=== PATIENT | female | born 1945 | race African-American/Black ===

== ENCOUNTER 2019-06-01 03:04 | Emergency (ER) | payer MEDICARE, OTHER ==
[~2019-06-01] VITALS: Ht 170.2 cm; Wt 82.0 kg
[~2019-06-01 03:04] MED LIST: ALPR-392 PO; AMIODARONE PO; ASPI-1393 PO; CHOL100044 PO; CLOP75TA4 PO; DEXL60CA3 PO; DOCU-150 PO; HYDR100T26 PO; LEVO75TA7 PO; NIFE60TA35 PO; WARF5TAB76 PO
[2019-06-01] MEDS ORDERED: LORAZEPAM 1MG TABLET PO ONE (05:00)
[2019-06-01 06:09] VITALS: BP 120/78
== END 2019-06-01 06:10 | disposition home or self-care (01) ==
LOC: ER 03:04
DX: F41.9 Anxiety disorder, unspecified (principal); I11.9 Hypertensive heart disease without heart failure; I48.91 Unspecified atrial fibrillation; E03.9 Hypothyroidism, unspecified; Z79.899 Other long term (current) drug therapy
CPT/HCPCS: 99284

== ENCOUNTER 2019-06-28 18:32 | Inpatient (IN) | payer OTHER ==
[~2019-06-28] VITALS: Ht 162.6 cm; Wt 90.7 kg
[2019-06-28 19:50] VITALS: BP 156/93
[2019-06-28 20:00] VITALS: BP 156/93
[2019-06-28] MEDS ORDERED: DIPHENHYDRAMINE 25MG CAPSULE PO PRN (22:00)
[2019-06-28 22:18] VITALS: BP 160/82
[2019-06-28] MEDS: HYDRALAZINE HCL 100MG TABLET PO SCH (22:18)
[2019-06-29] MEDS ORDERED: MAGNESIUM/ALUMINUM HYDROXIDE/SIMETHICONE 30ML UDC PO PRN (03:15)
[2019-06-29 06:03] VITALS: BP 153/82
[2019-06-29] MEDS: HYDRALAZINE HCL 100MG TABLET PO SCH ×3 (06:03→21:32)
[2019-06-29] MEDS: LEVOTHYROXINE SODIUM 88MCG TABLET PO SCH (06:03)
[2019-06-29 07:11] LABS: BASOPHILS % 0.5 % (0.0-2.0); EOSINOPHILS % 3.2 % (0.0-5.0); HEMATOCRIT. 35.4 % (36.0-48.0); HEMOGLOBIN. 12.4 g/dL (12.0-16.0); MEAN CORPUSCULAR VOLUME 97.2 fL (81.0-99.0); MEAN PLATELET VOLUME 8.4 fl (7.4-10.4); MONOCYTES % 12.9 % (2.0-8.0); NEUTROPHILS % 45.4 % (40.0-76.0); PLATELET 203 x1000/uL (130-400); RED BLOOD CELL COUNT 3.64 mill/uL (4.2-5.4); RED CELL DISTRIBUTION WIDTH 15.2 % (11.6-14.6)
[2019-06-29 07:25] LABS: CHLORIDE 107 mEq/L (98-107)
[2019-06-29] MEDS ORDERED: PNEUMOCOCCAL 23-VAL P-SAC VAC 0.5 ML IM ONE (08:00)
[2019-06-29] MEDS: ALPRAZOLAM 0.25 MG TABLET PO PRN (08:08)
[2019-06-29] MEDS: CLOPIDOGREL 75MG TABLET PO SCH (08:09)
[2019-06-29] MEDS: FAMOTIDINE 20MG TABLET PO SCH (08:09)
[2019-06-29] MEDS: ASPIRIN 81MG TABLET PO SCH (08:09)
[2019-06-29] MEDS: NIFEDIPINE XL 90MG TAB PO SCH (08:09)
[2019-06-29] MEDS: MELOXICAM 7.5MG TABLET PO SCH (08:10)
[2019-06-29] MEDS: DOCUSATE SODIUM 100MG CAPSULE PO SCH ×2 (08:10→08:11)
[2019-06-29] MEDS: LOSARTAN POTASSIUM 50 MG TABLET PO SCH (08:10)
[2019-06-29] MEDS: AMIODARONE HCL 200 MG TABLET PO SCH (08:10)
[2019-06-29] MEDS ORDERED: INFLUENZA VIRUS VACCINE(AFLURIA) 0.5ML SYR IM ONE (10:00)
[2019-06-29] MEDS: HYDROCODONE/ACETAMINOPHEN 5/325MG TABLET PO PRN (11:52)
[2019-06-29] MEDS ORDERED: POTASSIUM CHLORIDE 20MEQ TABLET SR PO NR (14:00)
[2019-06-29] MEDS: ENOXAPARIN 40MG/0.4ML SYR SUBCUT SCH (16:05)
[2019-06-29] MEDS: BISACODYL 5MG TABLET PO PRN (16:05)
[2019-06-29] MEDS: MONTELUKAST SODIUM 10MG TABLET PO SCH (16:52)
[2019-06-29 18:52] LABS: T4 FREE 1.29 ng/dL (0.76-1.46)
[2019-06-29 20:00] VITALS: BP 117/59
[2019-06-29] MEDS: IPRATROPIUM BROMIDE (0.02%) 0.5MG/2.5ML NEB HHN SCH (20:01)
[2019-06-29] MEDS: TRAMADOL 50MG TABLET PO PRN (21:31)
[2019-06-30] MEDS: IPRATROPIUM BROMIDE (0.02%) 0.5MG/2.5ML NEB HHN SCH ×3 (00:48→13:40)
[2019-06-30] MEDS: ALPRAZOLAM 0.25 MG TABLET PO PRN ×2 (02:08→22:02)
[2019-06-30] MEDS: BISACODYL 5MG TABLET PO PRN (05:43)
[2019-06-30] MEDS: LEVOTHYROXINE SODIUM 88MCG TABLET PO SCH (05:43)
[2019-06-30] MEDS: HYDRALAZINE HCL 100MG TABLET PO SCH ×3 (05:44→23:01)
[2019-06-30] MEDS: HYDROCODONE/ACETAMINOPHEN 5/325MG TABLET PO PRN (06:34)
[2019-06-30 08:16] VITALS: BP 122/51
[2019-06-30] MEDS: LOSARTAN POTASSIUM 50 MG TABLET PO SCH (08:49)
[2019-06-30] MEDS: DOCUSATE SODIUM 100MG CAPSULE PO SCH ×2 (08:49→16:49)
[2019-06-30] MEDS: NIFEDIPINE XL 90MG TAB PO SCH ×2 (08:49→21:05)
[2019-06-30] MEDS: MELOXICAM 7.5MG TABLET PO SCH (08:50)
[2019-06-30] MEDS: CLOPIDOGREL 75MG TABLET PO SCH (08:50)
[2019-06-30] MEDS: ASPIRIN 81MG TABLET PO SCH (08:51)
[2019-06-30] MEDS: FAMOTIDINE 20MG TABLET PO SCH (08:51)
[2019-06-30] MEDS: AMIODARONE HCL 200 MG TABLET PO SCH (08:51)
[2019-06-30 10:59] LABS: BASOPHILS % 0.7 % (0.0-2.0); CHLORIDE 110 mEq/L (98-107); EOSINOPHILS % 1.6 % (0.0-5.0); HEMATOCRIT. 35.2 % (36.0-48.0); HEMOGLOBIN. 12.3 g/dL (12.0-16.0); LYMPHOCYTES % 28.8 % (20.0-50.0); MEAN CORPUSCULAR VOLUME 97.2 fL (81.0-99.0); MEAN PLATELET VOLUME 8.3 fl (7.4-10.4); MONOCYTES % 11.2 % (2.0-8.0); NEUTROPHILS % 57.7 % (40.0-76.0); PLATELET 218 x1000/uL (130-400); RED BLOOD CELL COUNT 3.63 mill/uL (4.2-5.4); RED CELL DISTRIBUTION WIDTH 14.9 % (11.6-14.6)
[2019-06-30 11:02] LABS: PARTIAL THROMBOPLASTIN TIME 27.2 sec (23.4-31.0); PROTHROMBIN TIME 10.4 sec (9.6-11.0)
[2019-06-30] MEDS ORDERED: NA PHOS,M-B/NA PHOS,DI-BA ENEMA 118ML PR SCH (12:00)
[2019-06-30] MEDS: MONTELUKAST SODIUM 10MG TABLET PO SCH (16:49)
[2019-06-30] MEDS: ENOXAPARIN 40MG/0.4ML SYR SUBCUT SCH (16:50)
[2019-06-30 20:00] VITALS: BP 124/49
[2019-06-30] MEDS: IPRATROPIUM/ALBUTEROL 0.5-3(2.5)MG/3ML NEB HHN PRN (21:53)
[2019-07-01] MEDS: IPRATROPIUM BROMIDE (0.02%) 0.5MG/2.5ML NEB HHN SCH ×4 (02:38→21:23)
[2019-07-01] MEDS: HYDRALAZINE HCL 100MG TABLET PO SCH ×3 (05:54→21:03)
[2019-07-01] MEDS: LEVOTHYROXINE SODIUM 88MCG TABLET PO SCH (05:55)
[2019-07-01] MEDS: TRAMADOL 50MG TABLET PO PRN (05:55)
[2019-07-01 08:21] VITALS: BP 107/52
[2019-07-01] MEDS: NIFEDIPINE XL 90MG TAB PO SCH ×2 (09:00→20:38)
[2019-07-01] MEDS: LOSARTAN POTASSIUM 50 MG TABLET PO SCH (09:00)
[2019-07-01] MEDS: CLOPIDOGREL 75MG TABLET PO SCH (09:08)
[2019-07-01] MEDS: DONEPEZIL HCL 10MG TABLET PO SCH (09:09)
[2019-07-01] MEDS: DOCUSATE SODIUM 100MG CAPSULE PO SCH ×2 (09:09→17:05)
[2019-07-01] MEDS: ASPIRIN 81MG TABLET PO SCH (09:09)
[2019-07-01] MEDS: AMIODARONE HCL 200 MG TABLET PO SCH (09:09)
[2019-07-01] MEDS: FAMOTIDINE 20MG TABLET PO SCH (09:09)
[2019-07-01] MEDS: MELOXICAM 7.5MG TABLET PO SCH (09:09)
[2019-07-01] MEDS: IPRATROPIUM/ALBUTEROL 0.5-3(2.5)MG/3ML NEB HHN PRN (10:40)
[2019-07-01] MEDS: ALPRAZOLAM 0.25 MG TABLET PO PRN (11:41)
[2019-07-01] MEDS: MONTELUKAST SODIUM 10MG TABLET PO SCH (16:38)
[2019-07-01] MEDS: ENOXAPARIN 40MG/0.4ML SYR SUBCUT SCH (16:38)
[2019-07-01 20:00] VITALS: BP 99/63
[2019-07-02] MEDS: IPRATROPIUM BROMIDE (0.02%) 0.5MG/2.5ML NEB HHN SCH ×3 (05:07→19:39)
[2019-07-02] MEDS: HYDRALAZINE HCL 100MG TABLET PO SCH ×3 (05:29→22:30)
[2019-07-02] MEDS: LEVOTHYROXINE SODIUM 100MCG TABLET PO SCH (06:12)
[2019-07-02] MEDS: TRAMADOL 50MG TABLET PO PRN (06:17)
[2019-07-02 08:00] VITALS: BP 144/71
[2019-07-02] MEDS: CLOPIDOGREL 75MG TABLET PO SCH (08:44)
[2019-07-02] MEDS: MELOXICAM 7.5MG TABLET PO SCH (08:44)
[2019-07-02] MEDS: AMIODARONE HCL 200 MG TABLET PO SCH (08:44)
[2019-07-02] MEDS: NIFEDIPINE XL 90MG TAB PO SCH ×2 (08:44→20:43)
[2019-07-02] MEDS: FAMOTIDINE 20MG TABLET PO SCH (08:44)
[2019-07-02] MEDS: DONEPEZIL HCL 10MG TABLET PO SCH (08:44)
[2019-07-02] MEDS: DOCUSATE SODIUM 100MG CAPSULE PO SCH ×2 (08:44→17:50)
[2019-07-02] MEDS: LOSARTAN POTASSIUM 50 MG TABLET PO SCH (08:44)
[2019-07-02] MEDS: ASPIRIN 81MG TABLET PO SCH (08:45)
[2019-07-02] MEDS: MONTELUKAST SODIUM 10MG TABLET PO SCH (17:39)
[2019-07-02] MEDS: ENOXAPARIN 40MG/0.4ML SYR SUBCUT SCH (17:40)
[2019-07-02 20:00] VITALS: BP 136/75
[2019-07-03] MEDS: ALPRAZOLAM 0.25 MG TABLET PO PRN (00:51)
[2019-07-03] MEDS: IPRATROPIUM BROMIDE (0.02%) 0.5MG/2.5ML NEB HHN SCH ×2 (01:24→07:31)
[2019-07-03] MEDS: HYDRALAZINE HCL 100MG TABLET PO SCH (05:56)
[2019-07-03] MEDS: LEVOTHYROXINE SODIUM 100MCG TABLET PO SCH (07:16)
[2019-07-03 08:00] VITALS: BP 129/73
[2019-07-03] MEDS: LOSARTAN POTASSIUM 50 MG TABLET PO SCH (08:19)
[2019-07-03] MEDS: CLOPIDOGREL 75MG TABLET PO SCH (08:19)
[2019-07-03] MEDS: MELOXICAM 7.5MG TABLET PO SCH (08:19)
[2019-07-03] MEDS: FAMOTIDINE 20MG TABLET PO SCH (08:19)
[2019-07-03] MEDS: NIFEDIPINE XL 90MG TAB PO SCH (08:19)
[2019-07-03] MEDS: DONEPEZIL HCL 10MG TABLET PO SCH (08:20)
[2019-07-03] MEDS: ASPIRIN 81MG TABLET PO SCH (08:20)
[2019-07-03] MEDS: DOCUSATE SODIUM 100MG CAPSULE PO SCH (08:20)
[2019-07-03] MEDS: AMIODARONE HCL 200 MG TABLET PO SCH (08:20)
[2019-07-03] MEDS: TRAMADOL 50MG TABLET PO PRN (08:44)
[2019-07-03 09:05] VITALS: BP 129/73
== END 2019-07-03 10:00 | disposition home health service (06) | DRG 552 ==
LOC: UNDOADMIN 21:52
PROVIDERS: ADMIT Psychiatry & Neurology Neurology; ATTEND Internal Medicine Critical Care Medicine
DX: S32.039A Unspecified fracture of third lumbar vertebra, initial encounter for closed fracture (principal); I42.9 Cardiomyopathy, unspecified; M54.16 Radiculopathy, lumbar region; E87.6 Hypokalemia; I48.0 Paroxysmal atrial fibrillation; Z86.73 Personal history of transient ischemic attack (TIA), and cerebral infarction without residual deficits; I11.0 Hypertensive heart disease with heart failure; I50.9 Heart failure, unspecified; I25.10 Atherosclerotic heart disease of native coronary artery without angina pectoris; E66.01 Morbid (severe) obesity due to excess calories; K43.9 Ventral hernia without obstruction or gangrene; E78.5 Hyperlipidemia, unspecified; M32.9 Systemic lupus erythematosus, unspecified; E03.9 Hypothyroidism, unspecified; F03.90 Unspecified dementia, unspecified severity, without behavioral disturbance, psychotic disturbance, mood disturbance, and anxiety; F41.1 Generalized anxiety disorder; J45.909 Unspecified asthma, uncomplicated; K21.9 Gastro-esophageal reflux disease without esophagitis; M43.16 Spondylolisthesis, lumbar region; K57.90 Diverticulosis of intestine, part unspecified, without perforation or abscess without bleeding; I25.2 Old myocardial infarction; Z79.01 Long term (current) use of anticoagulants; Z95.5 Presence of coronary angioplasty implant and graft; Z68.34 Body mass index [BMI] 34.0-34.9, adult; Z79.02 Long term (current) use of antithrombotics/antiplatelets; Z79.82 Long term (current) use of aspirin; Z82.49 Family history of ischemic heart disease and other diseases of the circulatory system; Z90.710 Acquired absence of both cervix and uterus
CPT/HCPCS: 36415; 80048; 83735; 84439; 84443; 84481; 92523; 92610; 93005; 93970; 97110; 97116; 97162; 97166; 97530; 97535; J1650; J7620

== ENCOUNTER 2020-09-02 21:07 | Inpatient (IN) | payer OTHER ==
[~2020-09-02] VITALS: Ht 162.6 cm; Wt 80.7 kg
[~2020-09-02 21:07] MED LIST changes: -ASPI-1393 PO; +ASPI-1497 PO
[2020-09-02] MEDS ORDERED: MORPHINE SULFATE 4 MG/ML CPJ (NOT FOR IM USE) IV STA (22:39)
[2020-09-02] MEDS ORDERED: ONDANSETRON HCL 4MG/2ML INJ IV STA (22:39)
[2020-09-02] MEDS ORDERED: SODIUM CHLORIDE 0.9% 1,000 ML IV ONE (22:45)
[2020-09-02 23:18] LABS: CHLORIDE 103 mEq/L (98-107)
[2020-09-02 23:23] LABS: PROTHROMBIN TIME 10.8 sec (9.6-11.0)
[2020-09-02 23:25] LABS: BASOPHILS % 0.4 % (0.0-2.0); EOSINOPHILS % 0.1 % (0.0-5.0); HEMATOCRIT. 39.9 % (36.0-48.0); HEMOGLOBIN. 13.7 g/dL (12.0-16.0); LYMPHOCYTES % 11.3 % (20.0-50.0); MEAN CORPUSCULAR HEMOGLOBIN 33.2 pg (28.0-32.0); MEAN CORPUSCULAR VOLUME 96.8 fL (81.0-99.0); MEAN PLATELET VOLUME 8.7 fl (7.4-10.4); MONOCYTES % 4.4 % (2.0-8.0); NEUTROPHILS % 83.8 % (40.0-76.0); PLATELET 185 x1000/uL (130-400); RED BLOOD CELL COUNT 4.12 mill/uL (4.2-5.4); RED CELL DISTRIBUTION WIDTH 15.2 % (11.6-14.6)
[2020-09-02] MEDS ORDERED: SODIUM CHLORIDE 0.9% 1000ML BAG (SEPSIS BOLUS) IV ONE (23:45)
[2020-09-03] MEDS ORDERED: ONDANSETRON HCL 4MG/2ML INJ IV PRN (10:00)
[2020-09-03] MEDS ORDERED: ACETAMINOPHEN 325MG TABLET PO PRN (10:00)
[2020-09-03] MEDS ORDERED: NA PHOS,M-B/NA PHOS,DI-BA ENEMA 118ML PR PRN (10:00)
[2020-09-03] MEDS ORDERED: CLONIDINE 0.1MG TABLET PO PRN (10:00)
[2020-09-03] MEDS ORDERED: DIPHENHYDRAMINE 50MG/ML VIAL IV PRN (10:00)
[2020-09-03] MEDS ORDERED: AMLODIPINE 10MG TABLET PO SCH (10:49)
[2020-09-03] MEDS ORDERED: POTASSIUM CHLORIDE INJ 40 MEQ in DEXT 5% WATER 500 ML IV NR (11:15)
[2020-09-03 11:30] VITALS: BP 134/66
[2020-09-03 12:00] VITALS: BP 134/66
[2020-09-03] MEDS ORDERED: METOCLOPRAMIDE HCL 10MG/2ML VIAL IV SCH (12:00)
[2020-09-03] MEDS: DEXT 5%/0.45% NACL 1000ML 1,000 ML IV SCH (12:29)
[2020-09-03 13:07] LABS: HEMATOCRIT. 43.1 % (36.0-48.0); HEMOGLOBIN. 14.7 g/dL (12.0-16.0); MEAN CORPUSCULAR HEMOGLOBIN 33.4 pg (28.0-32.0); MEAN CORPUSCULAR VOLUME 97.8 fL (81.0-99.0); MEAN PLATELET VOLUME 8.6 fl (7.4-10.4); PLATELET 184 x1000/uL (130-400); RED CELL DISTRIBUTION WIDTH 15.1 % (11.6-14.6)
[2020-09-03 13:12] LABS: CHLORIDE 102 mEq/L (98-107)
[2020-09-03] MEDS ORDERED: POTASSIUM CHLORIDE 20MEQ TABLET SR PO NR (14:00)
[2020-09-03 14:11] LABS: PLATELET ESTIMATE NORMAL
[2020-09-03] MEDS ORDERED: ENALAPRIL 2.5MG/2ML VIAL 2ML IV PRN (14:15)
[2020-09-03 16:00] VITALS: BP 174/82
[2020-09-03 18:15] LABS: CREATINE KINASE MB FRACTION 4.6 ng/mL (0.5-3.6)
[2020-09-03 20:00] VITALS: BP 165/66
[2020-09-03] MEDS: HYDRALAZINE 10 MG in SODIUM CHLORIDE 0.9% 49.5 ML IV SCH (22:35)
[2020-09-03 23:31] LABS: CREATINE KINASE MB FRACTION 4.1 ng/mL (0.5-3.6)
[2020-09-04] VITALS: BP 165/72
[2020-09-04] MEDS ORDERED: HYDRALAZINE 20MG/ML VIAL IV SCH
[2020-09-04 04:00] VITALS: BP 159/65
[2020-09-04] MEDS: DEXT 5%/0.45% NACL 1000ML 1,000 ML IV SCH (04:12)
[2020-09-04] MEDS: HYDRALAZINE 10 MG in SODIUM CHLORIDE 0.9% 49.5 ML IV SCH ×4 (04:20→21:50)
[2020-09-04 06:20] LABS: HEMATOCRIT. 35.2 % (36.0-48.0); HEMOGLOBIN. 12.5 g/dL (12.0-16.0); MEAN CORPUSCULAR HEMOGLOBIN 33.8 pg (28.0-32.0); MEAN CORPUSCULAR VOLUME 94.9 fL (81.0-99.0); MEAN PLATELET VOLUME 8.8 fl (7.4-10.4); PLATELET 182 x1000/uL (130-400); RED BLOOD CELL COUNT 3.71 mill/uL (4.2-5.4); RED CELL DISTRIBUTION WIDTH 15.1 % (11.6-14.6)
[2020-09-04 06:31] LABS: CHLORIDE 104 mEq/L (98-107)
[2020-09-04 06:42] LABS: LDL CHOLESTEROL 103 mg/dL (5-100)
[2020-09-04 06:44] LABS: HDL CHOLESTEROL 96 mg/dL (40-59)
[2020-09-04 08:00] VITALS: BP 154/54
[2020-09-04] MEDS: FAMOTIDINE 20MG/2ML VIAL IV SCH (09:14)
[2020-09-04] MEDS ORDERED: DIATR MEGLU/DIATRIZOATE SOLN 30ML PO NR (09:15)
[2020-09-04 12:00] VITALS: BP 156/50
[2020-09-04 15:27] LABS: PLATELET ESTIMATE NORMAL
[2020-09-04 16:00] VITALS: BP 152/56
[2020-09-04 20:00] VITALS: BP 121/51
[2020-09-05] VITALS: BP 113/43
[2020-09-05] MEDS: MAGNESIUM/ALUMINUM HYDROXIDE/SIMETHICONE 30ML UDC PO PRN (00:22)
[2020-09-05 04:00] VITALS: BP 121/96
[2020-09-05] MEDS: HYDRALAZINE 10 MG in SODIUM CHLORIDE 0.9% 49.5 ML IV SCH ×4 (05:03→22:34)
[2020-09-05 08:00] VITALS: BP 128/99
[2020-09-05] MEDS: FAMOTIDINE 20MG/2ML VIAL IV SCH (09:00)
[2020-09-05] MEDS ORDERED: SIMETHICONE 80MG TABLET CHEW PO PRN (11:15)
[2020-09-05 12:00] VITALS: BP 95/47
[2020-09-05] MEDS: DEXT 5%/0.45% NACL 1000ML 1,000 ML IV SCH (12:51)
[2020-09-05 16:00] VITALS: BP 94/47
[2020-09-05 20:00] VITALS: BP 118/46
[2020-09-06] VITALS: BP 150/57
[2020-09-06 04:00] VITALS: BP 132/44
[2020-09-06] MEDS: MAGNESIUM/ALUMINUM HYDROXIDE/SIMETHICONE 30ML UDC PO PRN (05:27)
[2020-09-06] MEDS: HYDRALAZINE 10 MG in SODIUM CHLORIDE 0.9% 49.5 ML IV SCH ×4 (05:45→22:00)
[2020-09-06] MEDS: DEXT 5%/0.45% NACL 1000ML 1,000 ML IV SCH (05:46)
[2020-09-06 08:00] VITALS: BP 181/57
[2020-09-06] MEDS: FAMOTIDINE 20MG/2ML VIAL IV SCH (08:53)
[2020-09-06 12:00] VITALS: BP 149/45
[2020-09-06 16:00] VITALS: BP 117/48
[2020-09-06 20:00] VITALS: BP 108/48
[2020-09-06] MEDS ORDERED: AMIODARONE 200 MG PO SCH (23:15)
[2020-09-07] VITALS: BP 191/62
[2020-09-07] MEDS ORDERED: WARFARIN SODIUM 5MG TABLET PO SCH
[2020-09-07] MEDS: HYDRALAZINE HCL 100MG TABLET PO SCH ×3 (00:13→12:43)
[2020-09-07] MEDS: LEVOTHYROXINE SODIUM 75MCG TABLET PO SCH ×2 (00:14→07:32)
[2020-09-07] MEDS: DOCUSATE SODIUM 100MG CAPSULE PO SCH ×2 (00:14→09:17)
[2020-09-07] MEDS: ASPIRIN 81MG EC TABLET PO SCH ×2 (00:15→09:17)
[2020-09-07] MEDS: CLOPIDOGREL 75MG TABLET PO SCH ×2 (00:15→09:18)
[2020-09-07] MEDS: CHOLECALCIFEROL (D3) 1000 UNIT TABLET PO SCH ×2 (00:16→09:18)
[2020-09-07] MEDS: NIFEDIPINE XL 60MG TAB PO SCH ×2 (00:16→09:17)
[2020-09-07] MEDS: DEXT 5%/0.45% NACL 1000ML 1,000 ML IV SCH (00:17)
[2020-09-07] MEDS: AMIODARONE HCL 200 MG TABLET PO SCH ×2 (01:47→09:18)
[2020-09-07 04:02] VITALS: BP 159/59
[2020-09-07] MEDS: HYDRALAZINE 10 MG in SODIUM CHLORIDE 0.9% 49.5 ML IV SCH ×2 (05:04→09:18)
[2020-09-07 08:00] VITALS: BP 118/58
[2020-09-07] MEDS: FAMOTIDINE 20MG/2ML VIAL IV SCH (09:17)
[2020-09-07 09:20] LABS: BASOPHILS % 0.3 % (0.0-2.0); EOSINOPHILS % 1.7 % (0.0-5.0); HEMATOCRIT. 31.5 % (36.0-48.0); HEMOGLOBIN. 10.9 g/dL (12.0-16.0); LYMPHOCYTES % 25.5 % (20.0-50.0); MEAN CORPUSCULAR HEMOGLOBIN 33.3 pg (28.0-32.0); MEAN CORPUSCULAR VOLUME 96.2 fL (81.0-99.0); MEAN PLATELET VOLUME 8.9 fl (7.4-10.4); MONOCYTES % 14.5 % (2.0-8.0); PLATELET 169 x1000/uL (130-400); RED BLOOD CELL COUNT 3.27 mill/uL (4.2-5.4); RED CELL DISTRIBUTION WIDTH 14.6 % (11.6-14.6)
[2020-09-07 09:28] LABS: PROTHROMBIN TIME 10.8 sec (9.6-11.0)
[2020-09-07 09:29] LABS: CHLORIDE 109 mEq/L (98-107)
[2020-09-07 11:17] VITALS: BP 121/67
== END 2020-09-07 13:25 | disposition home or self-care (01) | DRG 393 ==
LOC: ER 21:07 → 6EST 09-03 05:43 → ENRESERV 09-03 09:25
PROVIDERS: ADMIT Family Medicine; ATTEND Family Medicine
DX: K42.0 Umbilical hernia with obstruction, without gangrene (principal); I50.31 Acute diastolic (congestive) heart failure; I48.20 Chronic atrial fibrillation, unspecified; I11.0 Hypertensive heart disease with heart failure; I25.10 Atherosclerotic heart disease of native coronary artery without angina pectoris; K57.90 Diverticulosis of intestine, part unspecified, without perforation or abscess without bleeding; E55.9 Vitamin D deficiency, unspecified; F41.9 Anxiety disorder, unspecified; E03.9 Hypothyroidism, unspecified; Z20.828 Contact with and (suspected) exposure to other viral communicable diseases; E78.5 Hyperlipidemia, unspecified; Z90.49 Acquired absence of other specified parts of digestive tract; Z90.710 Acquired absence of both cervix and uterus; Z79.899 Other long term (current) drug therapy; Z95.5 Presence of coronary angioplasty implant and graft; Z79.82 Long term (current) use of aspirin; E87.6 Hypokalemia; K59.00 Constipation, unspecified
CPT/HCPCS: 80053; 83605; 83690; 85025; 85610; 99285; J7030; 36415; 71045; 74018; 74176; 74177; 80048; 80061; 82550; 82553; 84484; 87426; 93005; J0360; J2270; J2405; J3480; J3490; J7060; Q9963

== ENCOUNTER 2020-10-07 20:20 | Inpatient (IN) | payer MEDICARE, OTHER ==
[~2020-10-07] VITALS: Ht 162.6 cm; Wt 76.1 kg
[2020-10-07 20:20] VITALS: BP 115/61
[~2020-10-07 20:20] MED LIST changes: +CLOP-31 PO; -CLOP75TA4 PO
[2020-10-07 20:30] VITALS: BP 115/61
[2020-10-08] MEDS ORDERED: HEPARIN 100 UNITS/1 ML VIAL IVF PRN (01:30)
[2020-10-08] MEDS ORDERED: MAGNESIUM HYDROXIDE 400MG/5ML 30ML UDC PO PRN (01:30)
[2020-10-08] MEDS ORDERED: ALPRAZOLAM 0.25 MG TABLET PO PRN (01:30)
[2020-10-08] MEDS ORDERED: SODIUM CHLORIDE 0.9% INJ 10ML FLUSH IVF PRN (01:30)
[2020-10-08] MEDS: AMIODARONE HCL 200 MG TABLET PO SCH ×3 (02:59→21:40)
[2020-10-08] MEDS: LOSARTAN POTASSIUM 50 MG TABLET PO SCH ×2 (02:59→10:59)
[2020-10-08] MEDS: DOCUSATE SODIUM 100MG CAPSULE PO SCH ×3 (03:00→17:55)
[2020-10-08] MEDS: PANTOPRAZOLE SODIUM 40 MG/VIAL IV SCH ×2 (03:00→10:58)
[2020-10-08] MEDS: MULTIVITAMINS,THER W-MINERALS TABLET PO SCH ×2 (03:00→10:58)
[2020-10-08] MEDS ORDERED: ENOXAPARIN 80MG/0.8ML SYR SUBCUT SCH (03:00)
[2020-10-08] MEDS: FERROUS SULFATE 300MG/5ML UDC PO SCH ×3 (03:11→17:55)
[2020-10-08] MEDS: LEVOTHYROXINE SODIUM 88MCG TABLET PO SCH (07:08)
[2020-10-08] MEDS: HEPARIN 100 UNITS/1 ML VIAL IVF SCH ×4 (07:08→21:41)
[2020-10-08 07:53] LABS: BASOPHILS % 0.5 % (0.0-2.0); CHLORIDE 108 mEq/L (98-107); EOSINOPHILS % 0.2 % (0.0-5.0); HEMATOCRIT. 22.7 % (36.0-48.0); HEMOGLOBIN. 7.6 g/dL (12.0-16.0); LYMPHOCYTES % 23.7 % (20.0-50.0); MEAN CORPUSCULAR HEMOGLOBIN 30.8 pg (28.0-32.0); MEAN CORPUSCULAR VOLUME 92.8 fL (81.0-99.0); MEAN PLATELET VOLUME 7.8 fl (7.4-10.4); MONOCYTES % 10.6 % (2.0-8.0); PLATELET 333 x1000/uL (130-400); RED BLOOD CELL COUNT 2.45 mill/uL (4.2-5.4); RED CELL DISTRIBUTION WIDTH 16.8 % (11.6-14.6)
[2020-10-08 08:00] VITALS: BP 119/68
[2020-10-08] MEDS ORDERED: POTASSIUM CHLORIDE 20MEQ TABLET SR PO SCH (09:30)
[2020-10-08 14:28] LABS: CLARITY URINE CLEAR (CLEAR); COLOR URINE DARK YELLOW (YELLOW); KETONES URINE NEGATIVE (NEGATIVE); LEUKOCYTE ESTERASE URINE TRACE (NEGATIVE); NITRITE URINE NEGATIVE (NEGATIVE); OCCULT BLOOD URINE NEGATIVE (NEGATIVE); PROTEIN URINE 1+ (NEGATIVE)
[2020-10-08 15:28] LABS: INR 1.2; PROTHROMBIN TIME 12.6 sec (9.6-11.0)
[2020-10-08 17:30] VITALS: BP 119/56
[2020-10-08] MEDS: ENOXAPARIN 80MG/0.8ML SYR SUBCUT SCH (17:56)
[2020-10-08 19:09] LABS: BG BASE EXCESS 4.7 mmol/L (-2.0-2.0); BG CARBOXYHEMOGLOBIN 0.3 % (0.5-1.5); BG DEOXYHEMOGLOBIN 2.1 % (0.0-5.0); BG FRACTION INSPIRED OXYGEN 28; BG HCO3 ACT 27.7 mmol/L (22.0-26.0); BG METHEMOGLOBIN 0.3 % (0.0-1.5); BG OXYGEN SATURATION 97.9 % (92.0-98.5); BG OXYHEMOGLOBIN 97.3 % (94.0-97.0); BG PCO2 34.4 mmHg (35.0-45.0); BG PH 7.523 (7.350-7.450); BG PO2 115.5 mmHg (75.0-100.0); BG SAMPLE SITE RIGHT RADIAL; BG TOTAL HEMOGLOBIN 8.4 g/dL (12.0-18.0); BG VENT MODE NASAL CANNULA
[2020-10-08 20:00] VITALS: BP 120/41
[2020-10-09] MEDS: ENOXAPARIN 80MG/0.8ML SYR SUBCUT SCH (06:14)
[2020-10-09] MEDS: LEVOTHYROXINE SODIUM 88MCG TABLET PO SCH (06:14)
[2020-10-09 08:00] VITALS: BP 120/60
[2020-10-09 08:00] LABS: BASOPHILS % 0.3 % (0.0-2.0); EOSINOPHILS % 0.1 % (0.0-5.0); HEMATOCRIT. 22.8 % (36.0-48.0); HEMOGLOBIN. 7.7 g/dL (12.0-16.0); LYMPHOCYTES % 28.1 % (20.0-50.0); MEAN CORPUSCULAR HEMOGLOBIN 31.3 pg (28.0-32.0); MEAN CORPUSCULAR VOLUME 92.8 fL (81.0-99.0); MEAN PLATELET VOLUME 8.4 fl (7.4-10.4); MONOCYTES % 12.1 % (2.0-8.0); NEUTROPHILS % 59.4 % (40.0-76.0); PLATELET 329 x1000/uL (130-400); RED BLOOD CELL COUNT 2.46 mill/uL (4.2-5.4); RED CELL DISTRIBUTION WIDTH 16.9 % (11.6-14.6)
[2020-10-09 08:01] LABS: CHLORIDE 110 mEq/L (98-107)
[2020-10-09 08:06] LABS: TOTAL IRON BINDING CAPACITY 113 ug/dL (250-450)
[2020-10-09 08:20] LABS: FOLIC ACID (FOLATE) SERUM 8.1 ng/mL (>5.38)
[2020-10-09] MEDS ORDERED: NA PHOS,M-B/NA PHOS,DI-BA ENEMA 118ML PR SCH (08:30)
[2020-10-09] MEDS: HEPARIN 100 UNITS/1 ML VIAL IVF SCH ×2 (09:00→22:38)
[2020-10-09] MEDS: MULTIVITAMINS,THER W-MINERALS TABLET PO SCH (09:21)
[2020-10-09] MEDS: DOCUSATE SODIUM 100MG CAPSULE PO SCH ×2 (09:21→16:49)
[2020-10-09] MEDS: LOSARTAN POTASSIUM 50 MG TABLET PO SCH (09:22)
[2020-10-09] MEDS: PANTOPRAZOLE SODIUM 40 MG/VIAL IV SCH (09:22)
[2020-10-09] MEDS: AMIODARONE HCL 200 MG TABLET PO SCH ×2 (09:22→22:35)
[2020-10-09] MEDS: FERROUS SULFATE 300MG/5ML UDC PO SCH ×2 (09:22→16:52)
[2020-10-09] MEDS ORDERED: POTASSIUM CHLORIDE 20MEQ TABLET SR PO NR (16:00)
[2020-10-09 20:00] VITALS: BP 113/56
[2020-10-09] MEDS: LACTULOSE 20G/30ML UDC PO SCH (22:35)
[2020-10-10] MEDS: LACTULOSE 20G/30ML UDC PO SCH ×2 (06:00→14:09)
[2020-10-10 07:15] LABS: CHLORIDE 107 mEq/L (98-107)
[2020-10-10 07:20] LABS: BASOPHILS % 0.4 % (0.0-2.0); EOSINOPHILS % 0.2 % (0.0-5.0); HEMATOCRIT. 22.3 % (36.0-48.0); HEMOGLOBIN. 7.6 g/dL (12.0-16.0); LYMPHOCYTES % 35.5 % (20.0-50.0); MEAN CORPUSCULAR HEMOGLOBIN 31.6 pg (28.0-32.0); MEAN CORPUSCULAR VOLUME 92.9 fL (81.0-99.0); MONOCYTES % 14.2 % (2.0-8.0); NEUTROPHILS % 49.7 % (40.0-76.0); PLATELET 316 x1000/uL (130-400); RED CELL DISTRIBUTION WIDTH 17.2 % (11.6-14.6)
[2020-10-10 07:56] VITALS: BP 101/65
[2020-10-10] MEDS: LEVOTHYROXINE SODIUM 88MCG TABLET PO SCH (08:55)
[2020-10-10] MEDS: LOSARTAN POTASSIUM 50 MG TABLET PO SCH (09:00)
[2020-10-10] MEDS: DOCUSATE SODIUM 100MG CAPSULE PO SCH ×2 (09:01→16:24)
[2020-10-10] MEDS: PANTOPRAZOLE SODIUM 40 MG/VIAL IV SCH (09:01)
[2020-10-10] MEDS: FERROUS SULFATE 300MG/5ML UDC PO SCH ×2 (09:01→16:24)
[2020-10-10] MEDS: HEPARIN 100 UNITS/1 ML VIAL IVF SCH ×2 (09:01→20:54)
[2020-10-10] MEDS: AMIODARONE HCL 200 MG TABLET PO SCH ×2 (09:02→20:55)
[2020-10-10] MEDS: MULTIVITAMINS,THER W-MINERALS TABLET PO SCH (09:03)
[2020-10-10 09:29] VITALS: BP_SYST 140; BP_SYST 82; BP_DIAS 35; BP_DIAS 65
[2020-10-10] MEDS ORDERED: SODIUM CHLORIDE 0.9% 500 ML IV ONE (10:00)
[2020-10-10 10:03] VITALS: BP 144/66
[2020-10-10 10:04] VITALS: BP 111/74
[2020-10-10 10:12] VITALS: BP 124/64
[2020-10-10 13:15] LABS: T4 FREE 1.66 ng/dL (0.76-1.46)
[2020-10-10 20:00] VITALS: BP 117/62
[2020-10-11] MEDS: LEVOTHYROXINE SODIUM 88MCG TABLET PO SCH (06:08)
[2020-10-11 08:18] VITALS: BP 106/71
[2020-10-11] MEDS: LOSARTAN POTASSIUM 50 MG TABLET PO SCH (08:23)
[2020-10-11] MEDS: FERROUS SULFATE 300MG/5ML UDC PO SCH ×2 (08:33→15:11)
[2020-10-11] MEDS: PANTOPRAZOLE SODIUM 40 MG/VIAL IV SCH (08:33)
[2020-10-11] MEDS: HEPARIN 100 UNITS/1 ML VIAL IVF SCH ×2 (08:34→21:43)
[2020-10-11] MEDS: AMIODARONE HCL 200 MG TABLET PO SCH ×2 (08:34→21:43)
[2020-10-11] MEDS: DOCUSATE SODIUM 100MG CAPSULE PO SCH ×2 (08:34→15:11)
[2020-10-11] MEDS: MULTIVITAMINS,THER W-MINERALS TABLET PO SCH (08:34)
[2020-10-11] MEDS: DILTIAZEM HCL 30MG TABLET PO SCH ×2 (15:11→21:43)
[2020-10-11] MEDS ORDERED: DIGOXIN 250MCG TABLET PO SCH (18:00)
[2020-10-11 20:00] VITALS: BP 125/55
[2020-10-12] MEDS: LEVOTHYROXINE SODIUM 88MCG TABLET PO SCH (06:02)
[2020-10-12] MEDS: DILTIAZEM HCL 30MG TABLET PO SCH ×3 (06:06→21:11)
[2020-10-12 08:00] VITALS: BP 119/56
[2020-10-12] MEDS: PANTOPRAZOLE SODIUM 40 MG/VIAL IV SCH (08:37)
[2020-10-12] MEDS: FERROUS SULFATE 300MG/5ML UDC PO SCH ×2 (08:38→16:51)
[2020-10-12] MEDS: GUAIFENESIN-DM 200MG-20MG/10ML UDC PO PRN (08:40)
[2020-10-12] MEDS: HEPARIN 100 UNITS/1 ML VIAL IVF SCH ×2 (08:40→21:10)
[2020-10-12] MEDS: DOCUSATE SODIUM 100MG CAPSULE PO SCH ×2 (08:40→16:51)
[2020-10-12] MEDS: MULTIVITAMINS,THER W-MINERALS TABLET PO SCH (08:41)
[2020-10-12] MEDS: AMIODARONE HCL 200 MG TABLET PO SCH ×2 (08:41→21:10)
[2020-10-12 16:10] LABS: HEMATOCRIT. 26.9 % (36.0-48.0); HEMOGLOBIN. 9.1 g/dL (12.0-16.0); MEAN CORPUSCULAR HEMOGLOBIN 31.3 pg (28.0-32.0); MEAN CORPUSCULAR VOLUME 92.1 fL (81.0-99.0); MEAN PLATELET VOLUME 7.9 fl (7.4-10.4); PLATELET 301 x1000/uL (130-400); RED BLOOD CELL COUNT 2.92 mill/uL (4.2-5.4); RED CELL DISTRIBUTION WIDTH 17.3 % (11.6-14.6)
[2020-10-12 16:14] LABS: CHLORIDE 107 mEq/L (98-107)
[2020-10-12 16:55] LABS: PLATELET ESTIMATE NORMAL
[2020-10-12 20:00] VITALS: BP 130/42
[2020-10-12] MEDS: NITROFURANTOIN 100MG M/M CAPSULE PO SCH (21:10)
[2020-10-13] MEDS: DILTIAZEM HCL 30MG TABLET PO SCH ×3 (05:44→22:13)
[2020-10-13] MEDS: GUAIFENESIN-DM 200MG-20MG/10ML UDC PO PRN ×2 (05:47→18:21)
[2020-10-13] MEDS: LEVOTHYROXINE SODIUM 88MCG TABLET PO SCH (06:02)
[2020-10-13 08:00] VITALS: BP 126/72
[2020-10-13] MEDS: FERROUS SULFATE 300MG/5ML UDC PO SCH ×2 (08:25→16:36)
[2020-10-13] MEDS: NITROFURANTOIN 100MG M/M CAPSULE PO SCH ×2 (08:26→22:03)
[2020-10-13] MEDS: ACETAMINOPHEN 325MG TABLET PO PRN (08:26)
[2020-10-13] MEDS: MULTIVITAMINS,THER W-MINERALS TABLET PO SCH (08:26)
[2020-10-13] MEDS: DOCUSATE SODIUM 100MG CAPSULE PO SCH ×2 (08:26→16:36)
[2020-10-13] MEDS: AMIODARONE HCL 200 MG TABLET PO SCH ×2 (08:26→22:12)
[2020-10-13] MEDS: HEPARIN 100 UNITS/1 ML VIAL IVF SCH ×2 (08:27→22:03)
[2020-10-13] MEDS: FAMOTIDINE 20MG/2ML VIAL IV SCH (08:27)
[2020-10-13 08:47] LABS: HEMATOCRIT. 26.4 % (36.0-48.0); HEMOGLOBIN. 8.7 g/dL (12.0-16.0); MEAN CORPUSCULAR HEMOGLOBIN 30.3 pg (28.0-32.0); MEAN CORPUSCULAR VOLUME 91.6 fL (81.0-99.0); PLATELET 301 x1000/uL (130-400); RED BLOOD CELL COUNT 2.88 mill/uL (4.2-5.4); RED CELL DISTRIBUTION WIDTH 17.3 % (11.6-14.6)
[2020-10-13 09:21] LABS: CHLORIDE 108 mEq/L (98-107)
[2020-10-13 09:47] LABS: PHOSPHORUS 3.2 mg/dL (2.5-4.9)
[2020-10-13] MEDS ORDERED: POTASSIUM CHLORIDE 20MEQ/PACKET PO NR (10:30)
[2020-10-13 14:11] LABS: 25-HYDROXY VITAMIN D3 26 ng/mL (.)
[2020-10-13 14:13] LABS: PLATELET ESTIMATE NORMAL
[2020-10-13] MEDS ORDERED: BISACODYL 10MG SUPP PR PRN (14:30)
[2020-10-13] MEDS ORDERED: LACTULOSE 20G/30ML UDC PO SCH (16:00)
[2020-10-13 20:00] VITALS: BP 88/51
[2020-10-13 22:00] VITALS: BP 130/72
[2020-10-14] MEDS: DILTIAZEM HCL 30MG TABLET PO SCH (05:22)
[2020-10-14] MEDS: LEVOTHYROXINE SODIUM 88MCG TABLET PO SCH (06:00)
[2020-10-14 08:00] VITALS: BP 136/60
[2020-10-14] MEDS: FERROUS SULFATE 300MG/5ML UDC PO SCH ×2 (08:23→17:23)
[2020-10-14] MEDS: NITROFURANTOIN 100MG M/M CAPSULE PO SCH ×2 (08:23→20:41)
[2020-10-14] MEDS: MULTIVITAMINS,THER W-MINERALS TABLET PO SCH (08:23)
[2020-10-14] MEDS: FAMOTIDINE 20MG/2ML VIAL IV SCH (08:23)
[2020-10-14] MEDS: AMIODARONE HCL 200 MG TABLET PO SCH ×2 (08:23→20:42)
[2020-10-14] MEDS: DOCUSATE SODIUM 100MG CAPSULE PO SCH ×2 (08:24→17:23)
[2020-10-14] MEDS: HEPARIN 100 UNITS/1 ML VIAL IVF SCH ×2 (08:24→20:41)
[2020-10-14] MEDS: ERGOCALCIFEROL 50000UNITS CAPSULE PO SCH (11:38)
[2020-10-14] MEDS ORDERED: POTASSIUM CHLORIDE 20MEQ TABLET SR PO NR (13:30)
[2020-10-14] MEDS: DILTIAZEM HCL 60MG TABLET PO SCH ×2 (13:43→21:01)
[2020-10-14 20:00] VITALS: BP 128/60
[2020-10-15] MEDS: DILTIAZEM HCL 60MG TABLET PO SCH (05:11)
[2020-10-15] MEDS: LEVOTHYROXINE SODIUM 88MCG TABLET PO SCH (06:00)
[2020-10-15 07:11] LABS: CHLORIDE 107 mEq/L (98-107)
[2020-10-15 07:25] LABS: BASOPHILS % 0.7 % (0.0-2.0); EOSINOPHILS % 0.3 % (0.0-5.0); HEMATOCRIT. 26.5 % (36.0-48.0); HEMOGLOBIN. 8.9 g/dL (12.0-16.0); LYMPHOCYTES % 51.3 % (20.0-50.0); MEAN CORPUSCULAR HEMOGLOBIN 30.9 pg (28.0-32.0); MEAN CORPUSCULAR VOLUME 92.2 fL (81.0-99.0); MEAN PLATELET VOLUME 7.9 fl (7.4-10.4); MONOCYTES % 13.4 % (2.0-8.0); NEUTROPHILS % 34.3 % (40.0-76.0); PLATELET 282 x1000/uL (130-400); RED BLOOD CELL COUNT 2.88 mill/uL (4.2-5.4); RED CELL DISTRIBUTION WIDTH 17.4 % (11.6-14.6)
[2020-10-15 08:08] VITALS: BP 141/72
[2020-10-15] MEDS: FAMOTIDINE 20MG/2ML VIAL IV SCH (08:37)
[2020-10-15] MEDS: MULTIVITAMINS,THER W-MINERALS TABLET PO SCH (08:37)
[2020-10-15] MEDS: FERROUS SULFATE 300MG/5ML UDC PO SCH ×2 (08:37→17:05)
[2020-10-15] MEDS: HEPARIN 100 UNITS/1 ML VIAL IVF SCH ×2 (08:37→21:49)
[2020-10-15] MEDS: NITROFURANTOIN 100MG M/M CAPSULE PO SCH ×2 (08:37→21:50)
[2020-10-15] MEDS: AMIODARONE HCL 200 MG TABLET PO SCH ×2 (08:37→21:50)
[2020-10-15] MEDS: DOCUSATE SODIUM 100MG CAPSULE PO SCH ×2 (08:38→17:05)
[2020-10-15] MEDS ORDERED: POTASSIUM CHLORIDE 20MEQ TABLET SR PO NR (09:15)
[2020-10-15] MEDS ORDERED: POTASSIUM CHLORIDE 20MEQ TABLET SR PO ONE (12:00)
[2020-10-15] MEDS ORDERED: POTASSIUM CHLORIDE 20MEQ TABLET SR PO SCH (12:00)
[2020-10-15] MEDS: DILTIAZEM HCL 90MG TABLET PO SCH ×2 (13:09→23:37)
[2020-10-15 20:00] VITALS: BP 121/49
[2020-10-16] MEDS: DILTIAZEM HCL 90MG TABLET PO SCH ×3 (05:55→23:21)
[2020-10-16] MEDS: LEVOTHYROXINE SODIUM 88MCG TABLET PO SCH (05:55)
[2020-10-16 06:40] LABS: BASOPHILS % 0.5 % (0.0-2.0); EOSINOPHILS % 0.7 % (0.0-5.0); HEMATOCRIT. 26.5 % (36.0-48.0); LYMPHOCYTES % 52.1 % (20.0-50.0); MEAN CORPUSCULAR HEMOGLOBIN 31.3 pg (28.0-32.0); MEAN CORPUSCULAR VOLUME 91.8 fL (81.0-99.0); MEAN PLATELET VOLUME 7.8 fl (7.4-10.4); MONOCYTES % 9.1 % (2.0-8.0); NEUTROPHILS % 37.6 % (40.0-76.0); PLATELET 292 x1000/uL (130-400); RED BLOOD CELL COUNT 2.89 mill/uL (4.2-5.4); RED CELL DISTRIBUTION WIDTH 17.7 % (11.6-14.6)
[2020-10-16 07:02] LABS: CHLORIDE 109 mEq/L (98-107)
[2020-10-16 07:58] VITALS: BP 122/62
[2020-10-16] MEDS: HEPARIN 100 UNITS/1 ML VIAL IVF SCH ×2 (09:00→21:27)
[2020-10-16] MEDS: AMIODARONE HCL 200 MG TABLET PO SCH ×2 (09:17→21:27)
[2020-10-16] MEDS: FAMOTIDINE 20MG/2ML VIAL IV SCH (09:17)
[2020-10-16] MEDS: GUAIFENESIN-DM 200MG-20MG/10ML UDC PO PRN (09:17)
[2020-10-16] MEDS: DOCUSATE SODIUM 100MG CAPSULE PO SCH ×2 (09:17→16:14)
[2020-10-16] MEDS: NITROFURANTOIN 100MG M/M CAPSULE PO SCH ×2 (09:17→21:27)
[2020-10-16] MEDS: MULTIVITAMINS,THER W-MINERALS TABLET PO SCH (09:17)
[2020-10-16] MEDS: FERROUS SULFATE 300MG/5ML UDC PO SCH ×2 (09:17→16:14)
[2020-10-16] MEDS ORDERED: POTASSIUM CHLORIDE 20MEQ/PACKET PO SCH (14:00)
[2020-10-16] MEDS ORDERED: SIMETHICONE 80MG TABLET CHEW PO PRN (19:45)
[2020-10-16 20:00] VITALS: BP 126/50
[2020-10-17] MEDS: DILTIAZEM HCL 90MG TABLET PO SCH ×2 (06:00→15:05)
[2020-10-17] MEDS: LEVOTHYROXINE SODIUM 88MCG TABLET PO SCH (06:23)
[2020-10-17 07:54] VITALS: BP 104/68
[2020-10-17] MEDS: DOCUSATE SODIUM 100MG CAPSULE PO SCH ×2 (08:55→18:01)
[2020-10-17] MEDS: HEPARIN 100 UNITS/1 ML VIAL IVF SCH ×2 (08:55→21:51)
[2020-10-17] MEDS: NITROFURANTOIN 100MG M/M CAPSULE PO SCH ×2 (08:55→21:51)
[2020-10-17] MEDS: FERROUS SULFATE 300MG/5ML UDC PO SCH ×2 (08:55→18:01)
[2020-10-17] MEDS: AMIODARONE HCL 200 MG TABLET PO SCH ×2 (08:55→21:51)
[2020-10-17] MEDS: MULTIVITAMINS,THER W-MINERALS TABLET PO SCH (08:55)
[2020-10-17] MEDS: FAMOTIDINE 20MG/2ML VIAL IV SCH (08:56)
[2020-10-17 20:00] VITALS: BP 144/57
[2020-10-18] MEDS: LEVOTHYROXINE SODIUM 88MCG TABLET PO SCH (06:10)
[2020-10-18 06:27] LABS: BASOPHILS % 0.6 % (0.0-2.0); EOSINOPHILS % 0.8 % (0.0-5.0); HEMATOCRIT. 26.8 % (36.0-48.0); HEMOGLOBIN. 9.1 g/dL (12.0-16.0); LYMPHOCYTES % 47.4 % (20.0-50.0); MEAN CORPUSCULAR HEMOGLOBIN 31.2 pg (28.0-32.0); MEAN CORPUSCULAR VOLUME 91.7 fL (81.0-99.0); MEAN PLATELET VOLUME 7.7 fl (7.4-10.4); MONOCYTES % 10.5 % (2.0-8.0); NEUTROPHILS % 40.7 % (40.0-76.0); PLATELET 285 x1000/uL (130-400); RED BLOOD CELL COUNT 2.93 mill/uL (4.2-5.4); RED CELL DISTRIBUTION WIDTH 18.2 % (11.6-14.6)
[2020-10-18 06:37] LABS: CHLORIDE 109 mEq/L (98-107)
[2020-10-18] MEDS: DOCUSATE SODIUM 100MG CAPSULE PO SCH ×2 (08:02→17:20)
[2020-10-18] MEDS: AMIODARONE HCL 200 MG TABLET PO SCH ×2 (08:02→21:54)
[2020-10-18] MEDS: FAMOTIDINE 20MG/2ML VIAL IV SCH (08:02)
[2020-10-18] MEDS: HEPARIN 100 UNITS/1 ML VIAL IVF SCH ×2 (08:03→21:54)
[2020-10-18] MEDS: FERROUS SULFATE 300MG/5ML UDC PO SCH ×2 (08:03→17:20)
[2020-10-18] MEDS: MULTIVITAMINS,THER W-MINERALS TABLET PO SCH (08:03)
[2020-10-18 08:27] VITALS: BP 136/74
[2020-10-18] MEDS ORDERED: DILTIAZEM HCL 60MG TABLET PO SCH ×2 (09:00→14:00)
[2020-10-18 09:11] VITALS: BP_SYST 114; BP_SYST 123; BP_DIAS 53; BP_DIAS 63
[2020-10-18 09:12] VITALS: BP 84/44
[2020-10-18] MEDS ORDERED: POTASSIUM CHLORIDE 20MEQ/PACKET PO NR (11:30)
[2020-10-18 14:22] VITALS: BP 140/60
[2020-10-18 20:00] VITALS: BP 131/54
[2020-10-18] MEDS: DILTIAZEM HCL 30MG TABLET PO SCH (22:00)
[2020-10-19] MEDS: DILTIAZEM HCL 30MG TABLET PO SCH ×3 (06:00→21:35)
[2020-10-19 06:29] LABS: CHLORIDE 108 mEq/L (98-107)
[2020-10-19] MEDS: LEVOTHYROXINE SODIUM 88MCG TABLET PO SCH (06:42)
[2020-10-19 08:00] VITALS: BP 109/56
[2020-10-19 09:00] VITALS: BP_SYST 115; BP_SYST 123; BP_SYST 135; BP_DIAS 59; BP_DIAS 61; BP_DIAS 70
[2020-10-19] MEDS: FERROUS SULFATE 300MG/5ML UDC PO SCH ×2 (09:41→17:28)
[2020-10-19] MEDS: FAMOTIDINE 20MG/2ML VIAL IV SCH (09:41)
[2020-10-19] MEDS: HEPARIN 100 UNITS/1 ML VIAL IVF SCH (09:41)
[2020-10-19] MEDS: MULTIVITAMINS,THER W-MINERALS TABLET PO SCH (09:42)
[2020-10-19] MEDS: AMIODARONE HCL 200 MG TABLET PO SCH ×2 (09:42→20:25)
[2020-10-19] MEDS: DOCUSATE SODIUM 100MG CAPSULE PO SCH ×2 (09:42→17:28)
[2020-10-19] MEDS ORDERED: FUROSEMIDE 40MG/4ML VIAL IVP SCH (13:00)
[2020-10-19] MEDS: POTASSIUM CHLORIDE 10MEQ TABLET SR PO SCH (13:01)
[2020-10-19 20:00] VITALS: BP 108/51
[2020-10-20] MEDS: DILTIAZEM HCL 30MG TABLET PO SCH ×2 (05:11→20:16)
[2020-10-20] MEDS: LEVOTHYROXINE SODIUM 88MCG TABLET PO SCH (06:02)
[2020-10-20 07:14] LABS: BASOPHILS % 0.4 % (0.0-2.0); EOSINOPHILS % 0.3 % (0.0-5.0); HEMOGLOBIN. 9.4 g/dL (12.0-16.0); LYMPHOCYTES % 50.5 % (20.0-50.0); MEAN CORPUSCULAR HEMOGLOBIN 31.4 pg (28.0-32.0); MEAN CORPUSCULAR VOLUME 93.5 fL (81.0-99.0); MEAN PLATELET VOLUME 7.8 fl (7.4-10.4); MONOCYTES % 9.2 % (2.0-8.0); NEUTROPHILS % 39.6 % (40.0-76.0); PLATELET 278 x1000/uL (130-400); RED CELL DISTRIBUTION WIDTH 19.6 % (11.6-14.6)
[2020-10-20 07:38] LABS: CHLORIDE 106 mEq/L (98-107)
[2020-10-20 08:00] VITALS: BP_SYST 102; BP_SYST 80; BP_SYST 99; BP_DIAS 37; BP_DIAS 38; BP_DIAS 55
[2020-10-20] MEDS: FAMOTIDINE 20MG TABLET PO SCH (08:50)
[2020-10-20] MEDS: DOCUSATE SODIUM 100MG CAPSULE PO SCH ×2 (08:50→16:59)
[2020-10-20] MEDS: FERROUS SULFATE 300MG/5ML UDC PO SCH ×2 (08:50→16:59)
[2020-10-20] MEDS: POTASSIUM CHLORIDE 10MEQ TABLET SR PO SCH (08:50)
[2020-10-20] MEDS: MULTIVITAMINS,THER W-MINERALS TABLET PO SCH (08:50)
[2020-10-20] MEDS: AMIODARONE HCL 200 MG TABLET PO SCH ×2 (08:50→14:12)
[2020-10-20] MEDS: ACETAMINOPHEN 325MG TABLET PO PRN (08:50)
[2020-10-20] MEDS: MIDODRINE HCL 5MG TABLET PO SCH ×2 (14:11→17:03)
[2020-10-20 20:00] VITALS: BP 127/65
[2020-10-21] MEDS: LEVOTHYROXINE SODIUM 88MCG TABLET PO SCH (06:00)
[2020-10-21 08:00] VITALS: BP_SYST 115; BP_SYST 121; BP_DIAS 55; BP_DIAS 57
[2020-10-21] MEDS: DOCUSATE SODIUM 100MG CAPSULE PO SCH ×2 (08:44→17:00)
[2020-10-21] MEDS: FAMOTIDINE 20MG TABLET PO SCH (08:44)
[2020-10-21] MEDS: POTASSIUM CHLORIDE 10MEQ TABLET SR PO SCH (08:44)
[2020-10-21] MEDS: MULTIVITAMINS,THER W-MINERALS TABLET PO SCH (08:44)
[2020-10-21] MEDS: ERGOCALCIFEROL 50000UNITS CAPSULE PO SCH (08:45)
[2020-10-21] MEDS: MIDODRINE HCL 5MG TABLET PO SCH ×3 (08:45→17:43)
[2020-10-21] MEDS: DILTIAZEM HCL 30MG TABLET PO SCH ×2 (08:46→20:43)
[2020-10-21] MEDS: FERROUS SULFATE 300MG/5ML UDC PO SCH ×2 (08:46→17:43)
[2020-10-21] MEDS: AMIODARONE HCL 200 MG TABLET PO SCH (12:54)
[2020-10-21] MEDS: ASCORBIC ACID 500 MG TABLET PO SCH (14:29)
[2020-10-21 20:00] VITALS: BP 101/78
[2020-10-22] MEDS: LEVOTHYROXINE SODIUM 88MCG TABLET PO SCH (06:32)
[2020-10-22 08:02] VITALS: BP 152/53
[2020-10-22] MEDS: DOCUSATE SODIUM 100MG CAPSULE PO SCH ×2 (09:00→17:02)
[2020-10-22] MEDS: MIDODRINE HCL 5MG TABLET PO SCH ×3 (09:00→17:02)
[2020-10-22] MEDS: FERROUS SULFATE 300MG/5ML UDC PO SCH ×2 (09:09→17:02)
[2020-10-22] MEDS: ASCORBIC ACID 500 MG TABLET PO SCH (09:10)
[2020-10-22] MEDS: MULTIVITAMINS,THER W-MINERALS TABLET PO SCH (09:10)
[2020-10-22] MEDS: DILTIAZEM HCL 30MG TABLET PO SCH ×2 (09:10→21:00)
[2020-10-22] MEDS: FAMOTIDINE 20MG TABLET PO SCH (09:10)
[2020-10-22] MEDS: AMIODARONE HCL 200 MG TABLET PO SCH (09:14)
[2020-10-22] MEDS: POTASSIUM CHLORIDE 10MEQ TABLET SR PO SCH (09:14)
[2020-10-22 14:09] VITALS: BP 111/42
[2020-10-22 14:10] VITALS: BP_SYST 117; BP_SYST 124; BP_DIAS 40; BP_DIAS 57
[2020-10-22 16:59] VITALS: BP 101/49
[2020-10-22 20:00] VITALS: BP 105/51
[2020-10-23] VITALS (7 sets, daily range): BP systolic 95–145; BP diastolic 46–78
[2020-10-23] MEDS: LEVOTHYROXINE SODIUM 88MCG TABLET PO SCH (06:06)
[2020-10-23 06:07] LABS: BASOPHILS % 0.4 % (0.0-2.0); EOSINOPHILS % 0.6 % (0.0-5.0); HEMATOCRIT. 26.6 % (36.0-48.0); HEMOGLOBIN. 8.9 g/dL (12.0-16.0); LYMPHOCYTES % 48.2 % (20.0-50.0); MEAN CORPUSCULAR HEMOGLOBIN 31.2 pg (28.0-32.0); MEAN CORPUSCULAR VOLUME 92.6 fL (81.0-99.0); MEAN PLATELET VOLUME 7.8 fl (7.4-10.4); MONOCYTES % 10.3 % (2.0-8.0); NEUTROPHILS % 40.5 % (40.0-76.0); PLATELET 265 x1000/uL (130-400); RED BLOOD CELL COUNT 2.87 mill/uL (4.2-5.4); RED CELL DISTRIBUTION WIDTH 19.1 % (11.6-14.6)
[2020-10-23 06:17] LABS: CHLORIDE 109 mEq/L (98-107)
[2020-10-23] MEDS: DILTIAZEM HCL 30MG TABLET PO SCH ×2 (08:46→21:29)
[2020-10-23] MEDS: FAMOTIDINE 20MG TABLET PO SCH (08:46)
[2020-10-23] MEDS: MULTIVITAMINS,THER W-MINERALS TABLET PO SCH (08:46)
[2020-10-23] MEDS: FERROUS SULFATE 300MG/5ML UDC PO SCH ×2 (08:47→16:21)
[2020-10-23] MEDS: DOCUSATE SODIUM 100MG CAPSULE PO SCH ×2 (08:51→16:21)
[2020-10-23] MEDS: MIDODRINE HCL 5MG TABLET PO SCH ×3 (08:51→16:20)
[2020-10-23] MEDS: POTASSIUM CHLORIDE 10MEQ TABLET SR PO SCH (09:02)
[2020-10-23] MEDS: AMIODARONE HCL 200 MG TABLET PO SCH (09:02)
[2020-10-23] MEDS: ASCORBIC ACID 500 MG TABLET PO SCH (13:03)
[2020-10-24] MEDS: ACETAMINOPHEN 325MG TABLET PO PRN (04:38)
[2020-10-24] MEDS: LEVOTHYROXINE SODIUM 88MCG TABLET PO SCH (05:29)
[2020-10-24 08:00] VITALS: BP_SYST 141; BP_SYST 153; BP_DIAS 54
[2020-10-24] MEDS: DOCUSATE SODIUM 100MG CAPSULE PO SCH ×2 (09:00→17:00)
[2020-10-24] MEDS: POTASSIUM CHLORIDE 10MEQ TABLET SR PO SCH (09:02)
[2020-10-24] MEDS: FAMOTIDINE 20MG TABLET PO SCH (09:02)
[2020-10-24] MEDS: DILTIAZEM HCL 30MG TABLET PO SCH (09:02)
[2020-10-24] MEDS: MIDODRINE HCL 5MG TABLET PO SCH ×2 (09:02→17:35)
[2020-10-24] MEDS: MULTIVITAMINS,THER W-MINERALS TABLET PO SCH (09:02)
[2020-10-24] MEDS: FERROUS SULFATE 300MG/5ML UDC PO SCH ×2 (09:07→17:34)
[2020-10-24 09:50] VITALS: BP_SYST 121; BP_SYST 99; BP_DIAS 49; BP_DIAS 65
[2020-10-24 10:00] VITALS: BP 133/85
[2020-10-24] MEDS: ASCORBIC ACID 500 MG TABLET PO SCH (10:18)
[2020-10-24] MEDS: AMIODARONE HCL 200 MG TABLET PO SCH (10:19)
[2020-10-24] MEDS ORDERED: SODIUM CHLORIDE 0.9% 500 ML IV SCH (12:00)
[2020-10-24] MEDS ORDERED: ALBUMIN HUMAN 25GM/500ML (5%) IV PRN (12:15)
[2020-10-24] MEDS ORDERED: MIDODRINE HCL 5MG TABLET PO SCH (13:00)
[2020-10-24 20:00] VITALS: BP 126/65
[2020-10-25 04:44] LABS: CHLORIDE 111 mEq/L (98-107)
[2020-10-25] MEDS: LEVOTHYROXINE SODIUM 88MCG TABLET PO SCH (06:04)
[2020-10-25 06:12] LABS: BASOPHILS % 0.3 % (0.0-2.0); EOSINOPHILS % 0.5 % (0.0-5.0); HEMATOCRIT. 26.3 % (36.0-48.0); HEMOGLOBIN. 8.8 g/dL (12.0-16.0); LYMPHOCYTES % 43.7 % (20.0-50.0); MEAN CORPUSCULAR HEMOGLOBIN 31.1 pg (28.0-32.0); MEAN CORPUSCULAR VOLUME 93.3 fL (81.0-99.0); MEAN PLATELET VOLUME 7.8 fl (7.4-10.4); MONOCYTES % 10.4 % (2.0-8.0); NEUTROPHILS % 45.1 % (40.0-76.0); PLATELET 268 x1000/uL (130-400); RED BLOOD CELL COUNT 2.82 mill/uL (4.2-5.4); RED CELL DISTRIBUTION WIDTH 19.4 % (11.6-14.6)
[2020-10-25 08:00] VITALS: BP 159/81
[2020-10-25] MEDS: MULTIVITAMINS,THER W-MINERALS TABLET PO SCH (08:51)
[2020-10-25] MEDS: FAMOTIDINE 20MG TABLET PO SCH (08:52)
[2020-10-25] MEDS: MIDODRINE HCL 5MG TABLET PO SCH ×3 (08:52→17:07)
[2020-10-25] MEDS: POTASSIUM CHLORIDE 10MEQ TABLET SR PO SCH (08:52)
[2020-10-25] MEDS: ASCORBIC ACID 500 MG TABLET PO SCH (08:52)
[2020-10-25] MEDS: FERROUS SULFATE 300MG/5ML UDC PO SCH ×2 (08:54→17:07)
[2020-10-25] MEDS: DOCUSATE SODIUM 100MG CAPSULE PO SCH ×2 (08:54→17:00)
[2020-10-25] MEDS: AMIODARONE HCL 200 MG TABLET PO SCH (09:14)
[2020-10-25 20:00] VITALS: BP 146/62
[2020-10-26] MEDS: LEVOTHYROXINE SODIUM 88MCG TABLET PO SCH (06:11)
[2020-10-26] MEDS: ACETAMINOPHEN 325MG TABLET PO PRN (06:25)
[2020-10-26 08:00] VITALS: BP 153/55
[2020-10-26 09:00] VITALS: BP_SYST 104; BP_SYST 105; BP_SYST 96; BP_DIAS 46; BP_DIAS 56; BP_DIAS 58
[2020-10-26] MEDS: DOCUSATE SODIUM 100MG CAPSULE PO SCH ×2 (09:00→17:00)
[2020-10-26] MEDS: FERROUS SULFATE 300MG/5ML UDC PO SCH ×2 (09:11→17:24)
[2020-10-26] MEDS: MIDODRINE HCL 5MG TABLET PO SCH ×3 (09:11→17:25)
[2020-10-26] MEDS: MULTIVITAMINS,THER W-MINERALS TABLET PO SCH (09:12)
[2020-10-26] MEDS: ASCORBIC ACID 500 MG TABLET PO SCH (09:12)
[2020-10-26] MEDS: FAMOTIDINE 20MG TABLET PO SCH (09:12)
[2020-10-26] MEDS: POTASSIUM CHLORIDE 10MEQ TABLET SR PO SCH (09:12)
[2020-10-26] MEDS: AMIODARONE HCL 200 MG TABLET PO SCH ×3 (09:16→12:25)
[2020-10-26 09:40] VITALS: BP 106/56
[2020-10-26 20:00] VITALS: BP 107/78
[2020-10-27] MEDS: LEVOTHYROXINE SODIUM 88MCG TABLET PO SCH (06:33)
[2020-10-27 07:56] VITALS: BP 125/55
[2020-10-27] MEDS: FAMOTIDINE 20MG TABLET PO SCH (08:12)
[2020-10-27] MEDS: ASCORBIC ACID 500 MG TABLET PO SCH (08:12)
[2020-10-27] MEDS: FERROUS SULFATE 300MG/5ML UDC PO SCH ×2 (08:12→16:50)
[2020-10-27] MEDS: POTASSIUM CHLORIDE 10MEQ TABLET SR PO SCH (08:12)
[2020-10-27] MEDS: MULTIVITAMINS,THER W-MINERALS TABLET PO SCH (08:12)
[2020-10-27] MEDS: DOCUSATE SODIUM 100MG CAPSULE PO SCH ×2 (08:13→16:35)
[2020-10-27] MEDS: MIDODRINE HCL 5MG TABLET PO SCH ×3 (08:14→16:46)
[2020-10-27 09:37] VITALS: BP_SYST 138; BP_SYST 140; BP_SYST 150; BP_DIAS 61; BP_DIAS 83; BP_DIAS 84
[2020-10-27 13:28] VITALS: BP 126/57
[2020-10-27 16:46] VITALS: BP 131/67
[2020-10-27 20:00] VITALS: BP 110/61
[2020-10-28] MEDS: LEVOTHYROXINE SODIUM 88MCG TABLET PO SCH (06:02)
[2020-10-28 07:46] LABS: CHLORIDE 109 mEq/L (98-107)
[2020-10-28 07:48] VITALS: BP_SYST 133; BP_SYST 144; BP_SYST 152; BP_DIAS 68; BP_DIAS 70; BP_DIAS 73
[2020-10-28 07:48] LABS: BASOPHILS % 0.4 % (0.0-2.0); LYMPHOCYTES % 46.1 % (20.0-50.0); MEAN CORPUSCULAR HEMOGLOBIN 31.6 pg (28.0-32.0); MEAN CORPUSCULAR VOLUME 94.7 fL (81.0-99.0); MEAN PLATELET VOLUME 7.9 fl (7.4-10.4); NEUTROPHILS % 41.5 % (40.0-76.0); PLATELET 292 x1000/uL (130-400); RED BLOOD CELL COUNT 2.85 mill/uL (4.2-5.4)
[2020-10-28] MEDS: FAMOTIDINE 20MG TABLET PO SCH (08:19)
[2020-10-28] MEDS: FERROUS SULFATE 300MG/5ML UDC PO SCH ×2 (08:19→16:17)
[2020-10-28] MEDS: MULTIVITAMINS,THER W-MINERALS TABLET PO SCH (08:19)
[2020-10-28] MEDS: ASCORBIC ACID 500 MG TABLET PO SCH (08:19)
[2020-10-28] MEDS: MIDODRINE HCL 5MG TABLET PO SCH ×3 (08:20→16:13)
[2020-10-28] MEDS: POTASSIUM CHLORIDE 10MEQ TABLET SR PO SCH (08:20)
[2020-10-28] MEDS: ERGOCALCIFEROL 50000UNITS CAPSULE PO SCH (08:20)
[2020-10-28] MEDS: DOCUSATE SODIUM 100MG CAPSULE PO SCH ×2 (08:20→16:17)
[2020-10-28] MEDS: AMIODARONE HCL 200 MG TABLET PO SCH (09:09)
[2020-10-28 12:16] VITALS: BP 128/68
[2020-10-28] MEDS ORDERED: BENZONATATE 100MG CAPSULE PO PRN (15:15)
[2020-10-28 16:12] VITALS: BP 148/67
[2020-10-28] MEDS: BENZONATATE 200MG CAPSULE PO SCH ×2 (18:23→22:00)
[2020-10-28 20:00] VITALS: BP 134/74
[2020-10-28] MEDS ORDERED: BENZONATATE 200MG CAPSULE PO SCH (22:00)
[2020-10-29] MEDS: BENZONATATE 200MG CAPSULE PO SCH ×4 (05:37→21:48)
[2020-10-29] MEDS: LEVOTHYROXINE SODIUM 88MCG TABLET PO SCH (06:09)
[2020-10-29 08:16] VITALS: BP 122/71
[2020-10-29] MEDS: MULTIVITAMINS,THER W-MINERALS TABLET PO SCH (08:20)
[2020-10-29] MEDS: POTASSIUM CHLORIDE 10MEQ TABLET SR PO SCH (08:20)
[2020-10-29] MEDS: MIDODRINE HCL 5MG TABLET PO SCH ×3 (08:20→16:35)
[2020-10-29] MEDS: ASCORBIC ACID 500 MG TABLET PO SCH (08:20)
[2020-10-29] MEDS: FERROUS SULFATE 300MG/5ML UDC PO SCH ×2 (08:21→16:35)
[2020-10-29] MEDS: FAMOTIDINE 20MG TABLET PO SCH (08:21)
[2020-10-29] MEDS: DOCUSATE SODIUM 100MG CAPSULE PO SCH ×2 (08:21→16:44)
[2020-10-29] MEDS: AMIODARONE HCL 200 MG TABLET PO SCH (10:29)
[2020-10-29 10:43] VITALS: BP_SYST 112; BP_SYST 115; BP_SYST 118; BP_DIAS 57; BP_DIAS 64
[2020-10-29 20:00] VITALS: BP 126/64
[2020-10-29 22:00] VITALS: BP 126/64
[2020-10-30] MEDS: LEVOTHYROXINE SODIUM 88MCG TABLET PO SCH (05:30)
[2020-10-30] MEDS: BENZONATATE 200MG CAPSULE PO SCH ×3 (05:30→21:57)
[2020-10-30 08:04] VITALS: BP 121/61
[2020-10-30] MEDS: FAMOTIDINE 20MG TABLET PO SCH (08:19)
[2020-10-30] MEDS: MULTIVITAMINS,THER W-MINERALS TABLET PO SCH (08:19)
[2020-10-30] MEDS: MIDODRINE HCL 5MG TABLET PO SCH ×3 (08:20→16:59)
[2020-10-30] MEDS: ASCORBIC ACID 500 MG TABLET PO SCH (08:20)
[2020-10-30] MEDS: POTASSIUM CHLORIDE 10MEQ TABLET SR PO SCH (08:20)
[2020-10-30] MEDS: AMIODARONE HCL 200 MG TABLET PO SCH (08:20)
[2020-10-30] MEDS: FERROUS SULFATE 300MG/5ML UDC PO SCH ×2 (08:20→16:59)
[2020-10-30 08:22] VITALS: BP 125/65
[2020-10-30] MEDS: DOCUSATE SODIUM 100MG CAPSULE PO SCH ×2 (08:26→16:59)
[2020-10-30 08:30] VITALS: BP 99/53
[2020-10-30 20:00] VITALS: BP_SYST 112; BP_SYST 128; BP_DIAS 66; BP_DIAS 67
[2020-10-31] MEDS: LEVOTHYROXINE SODIUM 88MCG TABLET PO SCH (05:41)
[2020-10-31] MEDS: BENZONATATE 200MG CAPSULE PO SCH ×3 (05:41→21:11)
[2020-10-31 06:13] LABS: CHLORIDE 109 mEq/L (98-107)
[2020-10-31 06:44] LABS: BASOPHILS % 0.9 % (0.0-2.0); EOSINOPHILS % 1.1 % (0.0-5.0); HEMATOCRIT. 29.5 % (36.0-48.0); HEMOGLOBIN. 9.9 g/dL (12.0-16.0); LYMPHOCYTES % 50.4 % (20.0-50.0); MEAN CORPUSCULAR HEMOGLOBIN 32.3 pg (28.0-32.0); MEAN CORPUSCULAR VOLUME 96.5 fL (81.0-99.0); MEAN PLATELET VOLUME 7.9 fl (7.4-10.4); MONOCYTES % 9.5 % (2.0-8.0); NEUTROPHILS % 38.1 % (40.0-76.0); PLATELET 316 x1000/uL (130-400); RED BLOOD CELL COUNT 3.06 mill/uL (4.2-5.4); RED CELL DISTRIBUTION WIDTH 20.8 % (11.6-14.6)
[2020-10-31 08:00] VITALS: BP 145/68
[2020-10-31 08:13] VITALS: BP_SYST 125; BP_SYST 140; BP_SYST 145; BP_DIAS 67; BP_DIAS 68; BP_DIAS 78
[2020-10-31] MEDS: POTASSIUM CHLORIDE 10MEQ TABLET SR PO SCH (08:23)
[2020-10-31] MEDS: DOCUSATE SODIUM 100MG CAPSULE PO SCH ×2 (08:23→17:00)
[2020-10-31] MEDS: FERROUS SULFATE 325MG TABLET PO SCH ×3 (08:23→17:28)
[2020-10-31] MEDS: ASCORBIC ACID 500 MG TABLET PO SCH (08:23)
[2020-10-31] MEDS: MIDODRINE HCL 5MG TABLET PO SCH ×3 (08:23→17:00)
[2020-10-31] MEDS: FAMOTIDINE 20MG TABLET PO SCH (08:23)
[2020-10-31] MEDS: MULTIVITAMINS,THER W-MINERALS TABLET PO SCH (08:23)
[2020-10-31] MEDS: AMIODARONE HCL 200 MG TABLET PO SCH (09:08)
[2020-10-31] MEDS ORDERED: SODIUM CHLORIDE 0.9% 500 ML IV ONE (12:45)
[2020-10-31 13:19] VITALS: BP_SYST 117; BP_SYST 133; BP_SYST 142; BP_DIAS 49; BP_DIAS 72; BP_DIAS 76
[2020-10-31 17:13] VITALS: BP_SYST 145; BP_SYST 165; BP_DIAS 79; BP_DIAS 82
[2020-10-31 20:00] VITALS: BP 132/69
[2020-11-01] MEDS: BENZONATATE 200MG CAPSULE PO SCH ×3 (05:15→21:18)
[2020-11-01] MEDS: LEVOTHYROXINE SODIUM 88MCG TABLET PO SCH (05:15)
[2020-11-01 08:00] VITALS: BP_SYST 113; BP_SYST 136; BP_SYST 145; BP_DIAS 73; BP_DIAS 86; BP_DIAS 91
[2020-11-01] MEDS: POTASSIUM CHLORIDE 10MEQ TABLET SR PO SCH (08:25)
[2020-11-01] MEDS: ASCORBIC ACID 500 MG TABLET PO SCH (08:25)
[2020-11-01] MEDS: FERROUS SULFATE 325MG TABLET PO SCH ×3 (08:25→16:59)
[2020-11-01] MEDS: MULTIVITAMINS,THER W-MINERALS TABLET PO SCH (08:25)
[2020-11-01] MEDS: FAMOTIDINE 20MG TABLET PO SCH (08:25)
[2020-11-01 08:30] VITALS: BP 145/91
[2020-11-01] MEDS: AMIODARONE HCL 200 MG TABLET PO SCH (09:01)
[2020-11-01] MEDS: DOCUSATE SODIUM 100MG CAPSULE PO SCH ×2 (09:01→16:59)
[2020-11-01] MEDS: MIDODRINE HCL 5MG TABLET PO SCH ×3 (09:01→16:52)
[2020-11-01 09:49] VITALS: BP_SYST 109; BP_SYST 113; BP_SYST 136; BP_DIAS 62; BP_DIAS 73; BP_DIAS 86
[2020-11-01 16:23] VITALS: BP_SYST 135; BP_SYST 137; BP_SYST 166; BP_DIAS 60; BP_DIAS 77; BP_DIAS 93
[2020-11-01 20:00] VITALS: BP 137/66
[2020-11-02] MEDS: LEVOTHYROXINE SODIUM 88MCG TABLET PO SCH (06:11)
[2020-11-02] MEDS: BENZONATATE 200MG CAPSULE PO SCH ×3 (06:11→21:20)
[2020-11-02 08:20] VITALS: BP 130/76
[2020-11-02] MEDS: DOCUSATE SODIUM 100MG CAPSULE PO SCH ×2 (09:00→17:00)
[2020-11-02] MEDS: MULTIVITAMINS,THER W-MINERALS TABLET PO SCH (09:16)
[2020-11-02] MEDS: POTASSIUM CHLORIDE 10MEQ TABLET SR PO SCH (09:17)
[2020-11-02] MEDS: FAMOTIDINE 20MG TABLET PO SCH (09:17)
[2020-11-02] MEDS: ASCORBIC ACID 500 MG TABLET PO SCH (09:17)
[2020-11-02] MEDS: FERROUS SULFATE 325MG TABLET PO SCH ×3 (09:17→17:44)
[2020-11-02] MEDS: MIDODRINE HCL 5MG TABLET PO SCH ×3 (09:17→17:43)
[2020-11-02] MEDS: AMIODARONE HCL 200 MG TABLET PO SCH (09:17)
[2020-11-02 09:30] VITALS: BP_SYST 123; BP_SYST 134; BP_SYST 138; BP_DIAS 64; BP_DIAS 70; BP_DIAS 75
[2020-11-02 20:00] VITALS: BP 140/71
[2020-11-03] MEDS: BENZONATATE 200MG CAPSULE PO SCH ×3 (05:49→21:11)
[2020-11-03] MEDS: ACETAMINOPHEN 325MG TABLET PO PRN (05:49)
[2020-11-03] MEDS: LEVOTHYROXINE SODIUM 88MCG TABLET PO SCH (06:26)
[2020-11-03 06:58] LABS: CHLORIDE 109 mEq/L (98-107)
[2020-11-03 07:18] LABS: BASOPHILS % 1.3 % (0.0-2.0); EOSINOPHILS % 1.4 % (0.0-5.0); HEMATOCRIT. 30.6 % (36.0-48.0); HEMOGLOBIN. 10.2 g/dL (12.0-16.0); LYMPHOCYTES % 50.4 % (20.0-50.0); MEAN CORPUSCULAR HEMOGLOBIN 32.3 pg (28.0-32.0); MEAN PLATELET VOLUME 7.9 fl (7.4-10.4); MONOCYTES % 9.6 % (2.0-8.0); NEUTROPHILS % 37.3 % (40.0-76.0); PLATELET 270 x1000/uL (130-400); RED BLOOD CELL COUNT 3.16 mill/uL (4.2-5.4); RED CELL DISTRIBUTION WIDTH 22.2 % (11.6-14.6)
[2020-11-03 08:00] VITALS: BP 145/85
[2020-11-03] MEDS: POTASSIUM CHLORIDE 10MEQ TABLET SR PO SCH (09:00)
[2020-11-03] MEDS: ASCORBIC ACID 500 MG TABLET PO SCH (09:00)
[2020-11-03] MEDS: FAMOTIDINE 20MG TABLET PO SCH (09:00)
[2020-11-03] MEDS: MIDODRINE HCL 5MG TABLET PO SCH ×3 (09:00→17:50)
[2020-11-03] MEDS: MULTIVITAMINS,THER W-MINERALS TABLET PO SCH (09:00)
[2020-11-03] MEDS: FERROUS SULFATE 325MG TABLET PO SCH ×3 (09:00→17:50)
[2020-11-03] MEDS: DOCUSATE SODIUM 100MG CAPSULE PO SCH ×2 (09:00→17:00)
[2020-11-03] MEDS: AMIODARONE HCL 200 MG TABLET PO SCH ×2 (09:05→17:50)
[2020-11-03 11:34] LABS: PLATELET ESTIMATE NORMAL
[2020-11-03] MEDS: DILTIAZEM HCL 30MG TABLET PO SCH ×4 (11:59→23:56)
[2020-11-03 20:00] VITALS: BP 141/72
[2020-11-04] MEDS: DILTIAZEM HCL 30MG TABLET PO SCH (05:39)
[2020-11-04] MEDS: BENZONATATE 200MG CAPSULE PO SCH (05:39)
[2020-11-04] MEDS: LEVOTHYROXINE SODIUM 88MCG TABLET PO SCH (06:00)
[2020-11-04 08:00] VITALS: BP 132/57
[2020-11-04] MEDS: DOCUSATE SODIUM 100MG CAPSULE PO SCH (09:00)
[2020-11-04] MEDS: FERROUS SULFATE 325MG TABLET PO SCH (09:23)
[2020-11-04] MEDS: POTASSIUM CHLORIDE 10MEQ TABLET SR PO SCH (09:23)
[2020-11-04] MEDS: MULTIVITAMINS,THER W-MINERALS TABLET PO SCH (09:23)
[2020-11-04] MEDS: ASCORBIC ACID 500 MG TABLET PO SCH (09:23)
[2020-11-04] MEDS: ERGOCALCIFEROL 50000UNITS CAPSULE PO SCH (09:24)
[2020-11-04] MEDS: FAMOTIDINE 20MG TABLET PO SCH (09:24)
[2020-11-04] MEDS: AMIODARONE HCL 200 MG TABLET PO SCH (09:24)
[2020-11-04] MEDS: MIDODRINE HCL 5MG TABLET PO SCH (09:24)
[2020-11-04 13:13] VITALS: BP 132/57
[2020-11-04] MEDS ORDERED: LEVO88TA2 PO (13:30)
[2020-11-04] MEDS ORDERED: FERR325T23 MT (13:30)
[2020-11-04] MEDS ORDERED: MIDO5TAB4 PO (13:30)
== END 2020-11-04 14:20 | disposition home health service (06) | DRG 73 ==
PROVIDERS: ADMIT Physical Medicine & Rehabilitation Spinal Cord Injury Medicine; ATTEND Internal Medicine Critical Care Medicine
DX: G62.81 Critical illness polyneuropathy (principal); G93.41 Metabolic encephalopathy; I50.33 Acute on chronic diastolic (congestive) heart failure; J18.9 Pneumonia, unspecified organism; J96.00 Acute respiratory failure, unspecified whether with hypoxia or hypercapnia; E44.0 Moderate protein-calorie malnutrition; I48.19 Other persistent atrial fibrillation; I11.0 Hypertensive heart disease with heart failure; I48.0 Paroxysmal atrial fibrillation; R53.81 Other malaise; G47.33 Obstructive sleep apnea (adult) (pediatric); E03.9 Hypothyroidism, unspecified; E87.6 Hypokalemia; D64.9 Anemia, unspecified; F03.90 Unspecified dementia, unspecified severity, without behavioral disturbance, psychotic disturbance, mood disturbance, and anxiety; I25.10 Atherosclerotic heart disease of native coronary artery without angina pectoris; R13.10 Dysphagia, unspecified; B95.2 Enterococcus as the cause of diseases classified elsewhere; E55.9 Vitamin D deficiency, unspecified; I27.29 Other secondary pulmonary hypertension; I35.0 Nonrheumatic aortic (valve) stenosis; I95.1 Orthostatic hypotension; Z79.899 Other long term (current) drug therapy; Z86.73 Personal history of transient ischemic attack (TIA), and cerebral infarction without residual deficits; Z82.49 Family history of ischemic heart disease and other diseases of the circulatory system; Z79.01 Long term (current) use of anticoagulants; Z90.710 Acquired absence of both cervix and uterus; I25.2 Old myocardial infarction; Z95.5 Presence of coronary angioplasty implant and graft; Z68.28 Body mass index [BMI] 28.0-28.9, adult
CPT/HCPCS: 36415; 36600; 71045; 80048; 80053; 81003; 82140; 82270; 82306; 82375; 82607; 82728; 82746; 82805; 83540; 83550; 83735; 83880; 84100; 84134; 84439; 84443; 84481; 84484; 85025; 87077; 87186; 92523; 92610; 93005; 93306; 93970; 97110; 97116; 97162; 97166; 97530; 97535; C9113; J1642; J1650; J1940; J3490; J7040

== ENCOUNTER → 2021-07-12 | Day surgery (SDC) | payer OTHER ==
[~2021-07-12] VITALS: Ht 162.6 cm; Wt 76.0 kg
[~2021-07-12] MED LIST changes: +ACETAMINOPHEN 325MG TABLET PO PRN; -ALPR-392 PO; +ATROPINE SULFATE 1MG/10ML SYR ONE; -DOCU-150 PO; +ESOM40CA PO; +FENTANYL CITRATE/PF 50MCG/ML 2ML VIAL ONE; +FERR325T23 MT; +HEPARIN 1000 UNITS/ML 10ML ONE; +HYDRALAZINE 20MG/ML VIAL ONE; +IODIXANOL 320MG/ML 100 ML BOTTLE IV ONE; -LEVO75TA7 PO; +LEVO88TA2 PO; +LIDOCAINE HCL 1% 10 MG/ML 10ML VIAL ONE; +LISI10TA26 PO; +MIDAZOLAM HCL 2 MG/2 ML VIAL ONE; +MIDO5TAB4 PO; -NIFE60TA35 PO; +NIFE90TA60 PO; +ONDANSETRON HCL 4MG/2ML INJ IV PRN; +PHENYLEPHRINE 100MCG/ML 10ML VIAL (CATH LAB) IV ONE; +PROTAMINE SULFATE 10MG/ML VIAL 5ML IV ONE; -WARF5TAB76 PO
== END | disposition home or self-care (01) ==
LOC: CCL 06:13
PROVIDERS: ATTEND Specialist
DX: I65.21 Occlusion and stenosis of right carotid artery (principal); I77.9 Disorder of arteries and arterioles, unspecified; E03.9 Hypothyroidism, unspecified; I10 Essential (primary) hypertension; K21.9 Gastro-esophageal reflux disease without esophagitis; I48.0 Paroxysmal atrial fibrillation; I25.10 Atherosclerotic heart disease of native coronary artery without angina pectoris; I25.2 Old myocardial infarction; Z86.73 Personal history of transient ischemic attack (TIA), and cerebral infarction without residual deficits; Z79.82 Long term (current) use of aspirin; Z79.899 Other long term (current) drug therapy; Z95.5 Presence of coronary angioplasty implant and graft; Z98.890 Other specified postprocedural states; Z82.49 Family history of ischemic heart disease and other diseases of the circulatory system
CPT/HCPCS: 36224; 36227; 85347; 93005; 99152; 99153; C1760; C1769; C1893; J0360; J1644; J2250; J2370; J2720; J3010; J3490; Q9967; J0461; G0500